=== PATIENT | female | born 1950 | race Hispanic/Latino ===

== ENCOUNTER 2023-03-19 18:58 | Emergency (ER) | payer MEDICARE, SELFPAY ==
[2023-03-19 19:27] VITALS: BP 187/72; PULSE 69; RESP 20; TEMP 36.8; O2SAT 99; BMI 25.5
--- NOTE | 2023-03-19 19:39 | DI.RAD.S_ITS ---
PROCEDURE: XR TOE RT MIN 2V INDICATIONS: toe pain TECHNIQUE: Three views of the right great toe. COMPARISON: None. FINDINGS: Bones: No fractures or dislocations. No suspicious bony lesions. Degenerative changes of the great toe metatarsophalangeal joint with mild hallux valgus angulation. Soft tissues: No suspicious soft tissue densities. IMPRESSION: Mild hallux valgus angulation of the great toe with degenerative changes of the tarsometatarsal joint. Dictated by: Fredy Strong M.D. on 03/19/2023 at 19:13 Approved by: Fredy Strong M.D. on 03/19/2023 at 19:14
--- NOTE | 2023-03-19 22:13 | ED.LOWEXIN ---
HPI - Extremity Injury (Lower) General Chief Complaint: Extremity Injury, Lower Stated Complaint: R/toe pain/ adviced by to come in Time Seen by Provider: 03/19/23 21:44 Source: patient Mode of arrival: Ambulatory History of Present Illness HPI Narrative: Patient is a 72-year-old female history of stroke on Plavix presenting today with right big toe pain. She reports it started hurting yesterday she denies any injury it is mildly swollen. She denies any history of gout she is not taken anything pain. No fever or chills it hurts to walk Related Data Home Medications Medication Instructions Recorded Confirmed clopidogrel 75 mg tablet 75 mg PO DAILY 02/18/21 02/18/21 simvastatin 40 mg tablet 40 mg PO DAILY 02/18/21 02/18/21 Allergies Allergy/AdvReac Type Severity Reaction Status Date / Time No Known Drug Allergies Allergy Verified 02/18/21 08:12 Review of Systems Review of Systems ROS Unobtainable: All systems reviewed & are unremarkable except as noted in HPI and below Patient History Social History Smoking Status: Former smoker Smoking Status: Former smoker alcohol intake frequency: 0-2 drinks per day Substance Use Type: does not use Exam Initial Vital Signs Initial Vital Signs: Vital Signs Temperature 98.3 F 03/19/23 19:27 Pulse Rate 69 03/19/23 19:27 Respiratory Rate 20 03/19/23 19:27 Blood Pressure 187/72 H 03/19/23 19:27 Pulse Oximetry 99 03/19/23 19:27 Oxygen Delivery Method Room Air 03/19/23 19:27 GENERAL: Alert well-appearing 72-year-old female CARDIOVASCULAR: peripheral pulses in tact, cap refill <2 sec RESPIRATORY: No respiratory distress, speaks in full sentences without difficulty EXTREMITIES: Normal range of motion, no clubbing or edema. Neurovascularly intact Right foot right great toe healthy swollen no erythema nontender to touch no calf pain or swelling distal pedal pulse intact NEUROLOGICAL: Cranial nerves II through XII grossly intact. Normal gait and speech. SKIN: Warm, dry, no petechiae, no rashes or lesions. Course Orders Ordered: ED Orders 03/19/23 19:39 XR toe RT min 2V Stat Vital Signs Vital signs: Vital Signs - 8 hr 03/19/23 19:27 Temperature 98.3 F Pulse Rate 69 Respiratory Rate 20 Blood Pressure 187/72 H Pulse Oximetry 99 Oxygen Delivery Method Room Air MDM - Extremity Injury (Lower) Imaging Data Extremity x-ray #1: Radiologist's Impression: PROCEDURE:? XR TOE RT MIN 2V ? INDICATIONS:? toe pain ? TECHNIQUE:? Three views of the right great toe. ? COMPARISON:? None. ? FINDINGS:? ? Bones:? No fractures or dislocations.? No suspicious bony lesions.? Degenerative changes of the great toe metatarsophalangeal joint with mild hallux valgus angulation. ? Soft tissues:? No suspicious soft tissue densities.? ? IMPRESSION:? Mild hallux valgus angulation of the great toe with degenerative changes of the tarsometatarsal joint. ? ? Dictated by: Fredy Strong M.D. on 03/19/2023 at 19:13 ? [facility] Narrative Medical decision making narrative: Patient 72-year-old female history of stroke presenting with 24 hours of toe pain. It is non erythematous mildly swollen no injury x-ray is negative. Support person initially was on phone and then was able to provide further information and is concern for a blood clot. Apparently EMS was out to evaluate and told him to come straight to the emergency department. This is highly unlikely to be a DVT, it is non erythematous he is no prior history of gout also unlikely to be gout however I recommend that she monitor it. No evidence of infection or cellulitis at this time. She is offered an orthopedic shoe for support and some Tylenol. Patient and caregiver left prior to their discharge instructions Discharge Plan Departure Patient Disposition: Home Clinical Impression: Great toe pain Instructions: DI for Toe Sprain Activity Restrictions/Additional Instructions: *You have been diagnosed with great toe pain *What to do: At this time I recommend elevating ice and ambulating as tolerated. You may require further testing and evaluation however not emergently indicated this time. *Continue to take medications as directed Tylenol 650 mg every 4-6 hours if needed for [id number] *Follow up with your primary care provider in 2-3 days or call [phone] *Return to ER if you should have increasing pain numbness tingling or any new, worsening or concerning symptoms Prescriptions: No Action simvastatin 40 mg tablet 40 mg PO DAILY clopidogrel 75 mg tablet 75 mg PO DAILY Referrals: Zoila Melo MD [Primary Care Provider] - Stand Alone Forms: Patient Portal/API
== END 2023-03-19 22:17 | disposition home or self-care (01) ==
PROVIDERS: Emergency Provider Emergency Medicine; Family Provider Family Medicine; PCP Specialist
DX: M79.674 Pain in right toe(s) (principal)
CPT/HCPCS: 73660; 99281; 99282